=== PATIENT | female | born 1960 | race Caucasian/White ===

== ENCOUNTER 2017-10-04 21:13 | Emergency (ER) | payer MEDICAID ==
[~2017-10-04] VITALS: Ht 162.6 cm; Wt 69.1 kg
[~2017-10-04 21:13] MED LIST: ASPI81TA3 PO; HYDR-845 PO; IBUP-1542 PO; IBUP400T22 PO; ZOC10 PO
[2017-10-04 21:35] VITALS: Ht 162.6 cm; Wt 69.1 kg
[2017-10-04] MEDS ORDERED: NPH10OT BOTH EARS (23:31)
[2017-10-04 23:55] VITALS: BP 112/72; PULSE 70; RESP 18; TEMP 98
--- NOTE | 2017-10-05 00:39 | ERD ---
ER Documentation Chief Complaint Chief Complaint bilateral earpain HPI 57-year-old female complaining of bilateral ear pain. Patient is noticed some liquid draining from her ears. Patient says she has mild headache however denies vomiting. Has not taken medications for symptoms. Denies any bleeding from her ears. Denies cough. Denies fevers. Denies medical problems. NKDA. Surgical history cholecystectomy. Social history denies. ROS All systems reviewed and are negative except as per history of present illness. Medications Home Meds Active Scripts Neomycin/Polymyxin/Hydrocort* (Cortisporin* Otic) 10 Ml Susp, 4 DROP BOTH EARS QID for 7 Days, EA Prov:ESTELA ZHENG PA-C 10/04/17 Hydroxyzine Hcl* (Atarax*) 50 Mg Tab, 50 MG PO TID for ANXIETY, #14 TAB Prov:SHIN CASTILLO MD 05/01/15 Ibuprofen* (Motrin*) 600 Mg Tab, 600 MG PO Q8, #30 Prov:SHIN CASTILLO MD 05/01/15 Simvastatin (Simvastatin) 10 Mg Tablet, 10 MG PO HS, #30 TAB 0 Refills Prov:ADITI REMY 07/08/14 Ibuprofen* (Motrin*) 400 Mg Tab, 400 MG PO Q6, #30 TAB 0 Refills Prov:ADITI REMY 07/08/14 Aspirin (Aspirin) 81 Mg Chew, 81 MG PO DAILY for 30 Days, 2 Refills Prov:ADITI REMY 07/08/14 Allergies Allergies: Coded Allergies: No Known Allergy (Unverified , 05/01/15) PMhx/Soc Medical and Surgical Hx: pt denies Medical Hx History of Surgery: Yes (Cholecystectomy) Anesthesia Reaction: No Hx Neurological Disorder: No Hx Respiratory Disorders: No Hx Cardiac Disorders: No Hx Psychiatric Problems: No Hx Miscellaneous Medical Probl: No Hx Alcohol Use: No Hx Substance Use: No Hx Tobacco Use: No Smoking Status: Never smoker Physical Exam Vitals Vital Signs Date Time Temp Pulse Resp B/P Pulse Ox O2 Delivery O2 Flow Rate FiO2 10/04/17 23:55 98.0 70 18 112/72 100 Room Air 10/04/17 21:35 98.2 63 20 156/69 98 Physical Exam GENERAL: The patient is well-appearing, well-nourished, in no acute distress HEENT: Atraumatic. Conjunctivae are pink. Pupils equal, round, and reactive to light. There is no scleral icterus. Erythema noted to the external ear canal. No mastoid tenderness. Mild tragal tenderness. Oropharynx clear. No nystagmus or photophobia. NECK: C-spine is soft and supple. There is no meningismus. There is no cervical lymphadenopathy. CHEST: Clear to auscultation bilaterally. There are no rales, wheezes or rhonchi. HEART: Regular rate and rhythm. No murmurs, clicks, rubs or gallops. No S3 or S4. NEURO: Cranial nerves II through XII intact. Pupils equal round and reactive to light. Gait normal Procedures/MDM MDM: 57-year-old female complaining of bilateral ear pain with drainage. Patient has concerning findings of otitis externa. Patient will be given otic drops for symptoms. I will suspicion for mastoiditis as patient does not have mastoid tenderness on exam. I have low suspicion for intracranial hemorrhage neuro deficit or intracranial mass as patient's neuro exam is within normal limits. Patient will be discharged with strict ER precautions and recommended to follow-up with primary care within 1-2 days for close evaluation. Patient is told if symptoms change or worsen to return to the emergency room immediately. All questions answered at discharge Departure Diagnosis: Primary Impression: Otitis externa Condition: Stable Patient Instructions: External Ear Infection (Adult) Referrals: [facility] YOU HAVE RECEIVED A MEDICAL SCREENING EXAM AND THE RESULTS INDICATE THAT YOU DO NOT HAVE A CONDITION THAT REQUIRES URGENT TREATMENT IN THE EMERGENCY DEPARTMENT. FURTHER EVALUATION AND TREATMENT OF YOUR CONDITION CAN WAIT UNTIL YOU ARE SEEN IN YOUR DOCTORS OFFICE WITHIN THE NEXT 1-2 DAYS. IT IS YOUR RESPONSIBILITY TO MAKE AN APPOINTMENT FOR FOLOW-UP CARE. IF YOU HAVE A PRIMARY DOCTOR --you should call your primary doctor and schedule an appointment IF YOU DO NOT HAVE A PRIMARY DOCTOR YOU CAN CALL OUR PHYSICIAN REFERRAL HOTLINE AT IF YOU CAN NOT AFFORD TO SEE A PHYSICIAN YOU CAN CHOSE FROM THE FOLLOWING [facility] [address] [facility] [address] [facility] [facility] [address] [facility] [address]. [facility] [address] [facility]. [facility] [address] Additional Instructions: FOLLOW UP WITH YOUR PRIMARY CARE PHYSICIAN TOMORROW.Return to this facility if you are not improving as expected. ESTELA ZHENG PA-C Oct 05, 2017 00:39
== END 2017-10-04 23:56 | disposition home or self-care (01) ==
LOC: FTE 21:13
DX: H60.93 Unspecified otitis externa, bilateral (principal)
CPT/HCPCS: 99283

== ENCOUNTER 2017-12-08 01:26 | Emergency (ER) | END 2017-12-08 08:56 | disposition home or self-care (01) ==